=== PATIENT | female | born 1945 | race Caucasian/White ===

== ENCOUNTER 2016-08-26 23:28 | Inpatient (IN) | payer OTHER ==
[~2016-08-26] VITALS: Ht 161.3 cm; Wt 73.5 kg
[2016-08-27 00:25] LABS: HEMATOCRIT 37.4 % (36.0-46.0); MCH 30.6 PG (29.0-34.0); MCHC 35.3 G/DL (30.0-36.0); MCV 86.8 FL (83-99); MEAN PLAT.VOLUME 10.5 uM^3 (9.5-12.4); PLATELET COUNT 189 K/uL (156-360); RBC DIS.WIDTH-CV 12.5 % (11.8-14.6); RBC DIS.WIDTH-SD 38.7 % (39-53); RED BLOOD COUNT 4.31 M/uL (3.80-5.20); WHITE BLOOD COUNT 16.7 K/uL (4.1-10.2)
[2016-08-27 00:34] LABS: CHLORIDE 107 mEq/L (99-109); POTASSIUM 3.6 mEq/L (3.7-5.4); SODIUM 140 mEq/L (136-147)
[2016-08-27 00:36] LABS: GLUCOSE 121 mg/dL (70-99)
[2016-08-27 00:38] LABS: ANION GAP 12 MEQ/L (2-14); TOTAL BILIRUBIN 2.1 mg/dL (0.0-1.0)
[2016-08-27 00:40] LABS: ALKALINE PHOSPHATASE 142 IU/L (3-129); GFR ESTIMATE (CALCULATED) > 59 mL/min/
[2016-08-27 00:41] LABS: UREA NITROGEN (BUN) 14 mg/dL (9-23)
[2016-08-27 00:55] LABS: LIPASE > 4220 U/L (1.0-51.0)
[2016-08-27 01:34] LABS: ADD MIUA? NO; BILIRUBIN NEGATIVE; BLOOD NEGATIVE; COLOR YELLOW ((YELLOW)); GLUCOSE (STRIP) NEGATIVE; KETONES NEGATIVE; LEUKOCYTES NEGATIVE; NITRITE NEGATIVE; PROTEIN (STRIP) NEGATIVE; SPECIFIC GRAVITY 1.012 (1.000-1.030); UCUL ADDED? NO; UROBILINOGEN 0.2 MG/DL (0.2-1.0)
[2016-08-27] MEDS ORDERED: SYNTHROID112 MCG PO (03:05)
[2016-08-27] MEDS ORDERED: ATORVASTATIN CA10 MG PO (03:05)
[2016-08-27] MEDS ORDERED: HAIR, SKIN & N1 EAC1 PO (03:06)
[2016-08-27] MEDS ORDERED: WELLBUTRIN SR150 MG PO (03:06)
[2016-08-27] MEDS ORDERED: RESTASIS MULTI5.5 ML BOTH EYES (03:06)
[2016-08-27] MEDS ORDERED: VITAMIN D-32000 UNI2 PO (03:07)
[2016-08-27] MEDS ORDERED: VITAMIN B122500 MCG PO (03:07)
[2016-08-27] MEDS ORDERED: VITAMIN B-650 MG PO (03:07)
[2016-08-27] MEDS ORDERED: [UNRECOGNIZED DRUG - OTHER] PO (03:11)
[2016-08-27 04:42] VITALS: BP 155/76
[2016-08-27 04:44] LABS: HDL CHOLESTEROL 61 MG/DL (Desirable>=50); LDL CHOLESTEROL 61 mg/dL (Desirable<100); NON-HDL CHOLESTEROL 88 mg/dL (Desirable<160); TOTAL CHOLESTEROL 149 mg/dL (Desirable<200); TRIGLYCERIDES 134 MG/DL (Normal: <150)
[2016-08-27 05:26] LABS: POINT-OF-CARE METER ID UU14188625; POINT-OF-CARE USER ID STWHLR41
[2016-08-27 07:17] VITALS: BP 135/69
[2016-08-27 07:35] LABS: POINT-OF-CARE METER ID UU14188625
[2016-08-27 11:15] LABS: POINT-OF-CARE METER ID UU14174225
[2016-08-27 15:00] VITALS: BP 136/74
[2016-08-27 16:14] LABS: POINT-OF-CARE METER ID UU14174225
[2016-08-28 00:11] VITALS: BP 124/64
[2016-08-28 02:08] LABS: POINT-OF-CARE METER ID UU14188625
[2016-08-28 05:59] LABS: POINT-OF-CARE METER ID UU14188625
[2016-08-28 06:56] LABS: EOSINOPHIL (%) 0.4 % (0-5); IMMATURE GRANULOCYTE (%) 0.2 % (0.0-0.7); LYMPHOCYTE COUNT 0.6 K/uL (1.0-2.8); MCH 31.1 PG (29.0-34.0); MCHC 34.4 G/DL (30.0-36.0); MCV 90.4 FL (83-99); MONOCYTE (%) 8.7 % (3-12); NEUTROPHIL (%) 84.9 % (45-76); NEUTROPHIL COUNT 9.3 K/uL (1.8-6.4); RBC DIS.WIDTH-CV 13.3 % (11.8-14.6); RBC DIS.WIDTH-SD 43.8 % (39-53); RED BLOOD COUNT 3.54 M/uL (3.80-5.20)
[2016-08-28 07:00] LABS: WHITE BLOOD COUNT 10.9 K/uL (4.1-10.2)
[2016-08-28 07:05] LABS: ALKALINE PHOSPHATASE 84 IU/L (3-129); ANION GAP 8 MEQ/L (2-14); CHLORIDE 104 MEQ/L (99-109); GFR ESTIMATE (CALCULATED) > 59 mL/min/; GLUCOSE 123 mg/dL (70-99); LIPASE 287 U/L (1.0-51.0); POTASSIUM 3.9 MEQ/L (3.7-5.4); SAMPLE HEMOLYSIS CHECK 0; SAMPLE ICTERIC CHECK 0; SAMPLE LIPEMIA CHECK 0; SODIUM 137 MEQ/L (136-147); TOTAL BILIRUBIN 1.4 MG/DL (0.0-1.0); UREA NITROGEN (BUN) 11 mg/dL (9-23)
[2016-08-28 08:11] VITALS: BP 125/70
[2016-08-28 11:44] LABS: USER ID TLW
[2016-08-28 11:45] LABS: PLATELET COUNT UNABLE TO REPORT K/uL (156-360)
[2016-08-28 13:00] LABS: POINT-OF-CARE METER ID UU14174225
[2016-08-28] MEDS ORDERED: ELAVIL10 MG PO (14:55)
[2016-08-28 17:12] VITALS: BP 142/76
[2016-08-28 19:46] VITALS: BP 139/69
[2016-08-29 07:41] VITALS: BP 142/77
[2016-08-29 09:29] LABS: EOSINOPHIL COUNT 0.1 K/uL (0-0.3); IMMATURE GRANULOCYTE (%) 0.1 % (0.0-0.7); LYMPHOCYTE COUNT 0.5 K/uL (1.0-2.8); MCH 29.3 PG (29.0-34.0); MCHC 32.8 G/DL (30.0-36.0); MCV 89.3 FL (83-99); MONOCYTE (%) 8.9 % (3-12); MONOCYTE COUNT 0.7 K/uL (0-0.8); NEUTROPHIL (%) 83.2 % (45-76); NEUTROPHIL COUNT 6.5 K/uL (1.8-6.4); RBC DIS.WIDTH-SD 42.2 % (39-53); RED BLOOD COUNT 4.03 M/uL (3.80-5.20); WHITE BLOOD COUNT 7.8 K/uL (4.1-10.2)
[2016-08-29 09:38] LABS: MEAN PLAT.VOLUME 10.8 uM^3 (9.5-12.4)
[2016-08-29 09:40] LABS: PLATELET COUNT 172 K/uL (156-360)
[2016-08-29 10:47] LABS: ANION GAP 10 MEQ/L (2-14); CHLORIDE 100 MEQ/L (99-109); GFR ESTIMATE (CALCULATED) > 59 mL/min/; GLUCOSE 109 mg/dL (70-99); POTASSIUM 3.9 MEQ/L (3.7-5.4); SAMPLE HEMOLYSIS CHECK 0; SAMPLE ICTERIC CHECK 0; SAMPLE LIPEMIA CHECK 0; SODIUM 136 MEQ/L (136-147); TOTAL BILIRUBIN 1.6 MG/DL (0.0-1.0); UREA NITROGEN (BUN) 8 mg/dL (9-23)
[2016-08-29 10:51] LABS: ALKALINE PHOSPHATASE 118 IU/L (3-129)
[2016-08-29 17:12] VITALS: BP 145/78
[2016-08-30 00:08] VITALS: BP 146/75
[2016-08-30 07:07] LABS: EOSINOPHIL (%) 2.4 % (0-5); EOSINOPHIL COUNT 0.1 K/uL (0-0.3); HEMATOCRIT 33.1 % (36.0-46.0); IMMATURE GRANULOCYTE (%) 0.2 % (0.0-0.7); LYMPHOCYTE COUNT 0.8 K/uL (1.0-2.8); MCH 30.5 PG (29.0-34.0); MCHC 34.1 G/DL (30.0-36.0); MCV 89.5 FL (83-99); MEAN PLAT.VOLUME 10.7 uM^3 (9.5-12.4); MONOCYTE (%) 12.9 % (3-12); MONOCYTE COUNT 0.7 K/uL (0-0.8); NEUTROPHIL (%) 69.8 % (45-76); NEUTROPHIL COUNT 3.8 K/uL (1.8-6.4); PLATELET COUNT 166 K/uL (156-360); RBC DIS.WIDTH-CV 12.9 % (11.8-14.6); RBC DIS.WIDTH-SD 41.7 % (39-53); WHITE BLOOD COUNT 5.5 K/uL (4.1-10.2)
[2016-08-30 07:54] VITALS: BP 142/73
[2016-08-30 14:58] VITALS: BP 154/77
[2016-08-31] VITALS: BP 155/80
[2016-08-31 08:53] VITALS: BP 163/77
== END 2016-08-31 17:52 | disposition home or self-care (01) | DRG 440 ==
LOC: EME 23:28 → 5SOUTH 08-27 03:25 → EDOF 08-27 03:25 → 5SOUTH 08-27 04:41
PROVIDERS: Hospitalist; Internal Medicine; Physician Assistant Medical; Student in an Organized Health Care Education/Training Program
DX: K85.00 Idiopathic acute pancreatitis without necrosis or infection (principal); E03.9 Hypothyroidism, unspecified; E78.5 Hyperlipidemia, unspecified; E73.9 Lactose intolerance, unspecified; D72.829 Elevated white blood cell count, unspecified; F40.240 Claustrophobia
CPT/HCPCS: 74177; 76705; 80053; 80061; 81003; 82948; 83690; 85025; 85027; 87493; 93005; 94799; 99281; 99285; C9113; J1170; J1644; J1815; J2405; J3010; J7030; J7120

== ENCOUNTER 2016-12-16 05:43 | Emergency (ER) | payer OTHER ==
[~2016-12-16] VITALS: Ht 160 cm; Wt 68.7 kg
[~2016-12-16 05:43] MED LIST: ATORVASTATIN CA10 MG PO; ELAVIL10 MG PO; HAIR, SKIN & N1 EAC1 PO; RESTASIS MULTI5.5 ML BOTH EYES; SYNTHROID112 MCG PO; VITAMIN B-650 MG PO; VITAMIN B122500 MCG PO; VITAMIN D-32000 UNI2 PO; WELLBUTRIN SR150 MG PO; [UNRECOGNIZED DRUG - OTHER] PO
[2016-12-16 06:41] LABS: HEMATOCRIT 38.2 % (36.0-46.0); MCH 30.7 PG (29.0-34.0); MCHC 34.3 G/DL (30.0-36.0); MCV 89.5 FL (83-99); MEAN PLAT.VOLUME 10.9 uM^3 (9.5-12.4); PLATELET COUNT 168 K/uL (156-360); RBC DIS.WIDTH-CV 12.1 % (11.8-14.6); RBC DIS.WIDTH-SD 39.4 % (39-53); RED BLOOD COUNT 4.27 M/uL (3.80-5.20)
[2016-12-16 06:43] LABS: ADD MIUA? NO; BILIRUBIN NEGATIVE; BLOOD NEGATIVE; COLOR YELLOW ((YELLOW)); GLUCOSE (STRIP) NEGATIVE; KETONES NEGATIVE; LEUKOCYTES NEGATIVE; NITRITE NEGATIVE; PROTEIN (STRIP) NEGATIVE; SPECIFIC GRAVITY 1.012 (1.000-1.030); UCUL ADDED? NO
[2016-12-16 07:07] LABS: ANION GAP 10 MEQ/L (2-14); CHLORIDE 104 MEQ/L (99-109); POTASSIUM 3.8 MEQ/L (3.7-5.4); SAMPLE HEMOLYSIS CHECK 0; SAMPLE ICTERIC CHECK 0; SAMPLE LIPEMIA CHECK 0; SODIUM 138 MEQ/L (136-147); TOTAL BILIRUBIN 1.4 MG/DL (0.0-1.0)
[2016-12-16 07:13] LABS: ALKALINE PHOSPHATASE 436 IU/L (3-129); GFR ESTIMATE (CALCULATED) > 59 mL/min/; GLUCOSE 114 mg/dL (70-99); UREA NITROGEN (BUN) 14 mg/dL (9-23)
[2016-12-16 08:19] LABS: LIPASE 17 U/L (1.0-51.0)
[2016-12-16 10:06] VITALS: BP 135/94
== END 2016-12-16 10:07 | disposition home or self-care (01) ==
LOC: EME 05:43
DX: R10.9 Unspecified abdominal pain (principal); R74.8 Abnormal levels of other serum enzymes; F32.9 Major depressive disorder, single episode, unspecified
CPT/HCPCS: 76705; 80053; 81003; 83690; 85027; 99281; 99285

== ENCOUNTER 2017-04-24 09:37 | Day surgery (SDC) | payer OTHER ==
[~2017-04-24] VITALS: Ht 161.3 cm; Wt 67.6 kg
[~2017-04-24 09:37] MED LIST changes: +VALTREX1000 MG PO
[2017-04-24 10:36] VITALS: BP 184/81
[2017-04-24] MEDS ORDERED: LORCET 5-325 M1 EACH PO (12:58)
[2017-04-24 14:27] VITALS: BP 160/76
[2017-04-24] MEDS ORDERED: PHENERGAN25 MG PR ×2 (14:47→14:50)
[2017-04-24 15:35] VITALS: BP 160/77
== END 2017-04-24 16:20 | disposition home or self-care (01) ==
LOC: SDC 09:37
DX: K80.10 Calculus of gallbladder with chronic cholecystitis without obstruction (principal); I10 Essential (primary) hypertension; F41.8 Other specified anxiety disorders; E78.01 Familial hypercholesterolemia; L82.1 Other seborrheic keratosis; E03.9 Hypothyroidism, unspecified; R73.03 Prediabetes; Z77.22 Contact with and (suspected) exposure to environmental tobacco smoke (acute) (chronic)
CPT/HCPCS: 74300; 88304; J0330; J0690; J1100; J1170; J1885; J2405; J2550; J2710; J2765; J3010